=== PATIENT | female | born 1985 | race African-American/Black ===

== ENCOUNTER 2019-07-08 07:08 | Observation (INO) | payer SELFPAY ==
[2019-07-08] MEDS ORDERED: Misoprostol 25 MCG (1/4 of 100 MCG) Tab VAG ONE (07:23)
[2019-07-08] MEDS ORDERED: Sodium Chloride 0.9% 10 ML Syringe FLUSH PRN (07:23)
--- NOTE | 2019-07-08 08:33 | PCM.LDHP ---
L&D History of Present Illness - General Date of Service: 07/08/19 Admit Problem/Dx: Patient Status Order with Admit Dx/Problem 07/08/19 07:23 Patient Status [ADT] Routine Admission Diagnosis/Problem Admission Diagnosis/Problem Missed with demise before 20 completed weeks of gestation Source of Information: Patient History Limitations: Reports: No Limitations - History of Present Illness Introduction:: Lily Cartagena is a 34 year old female with missed at approximately 15 weeks 2 days on 07/06/2019. She was being seen for her initial OB appointment at time of diagnosis. She had not been feeling movement prior to diagnosis of missed . She had been seen previously with an ultrasound where she was measuring 14 WGA about 6 weeks prior to her appointment with Dr. Rodgers. She denies any cramping or contractions. Denies any fevers or chills. Present Illness Comments:: Lily Cartagena is a 34 year old female with missed at 15 weeks 2 days by recent ultrasound. Here for medical management of missed . This has been complicated by: * Missed at 15 WGA - patient previously diagnosed with missed at 15 weeks 2 days ultrasound done on 07/06/2019. Patient desired induction today due to other children being at home and lack of childcare. She does have someone available to watch her children today. Discussed with patient that she could consider testing to find causes the demise but she declined. * ancestry OB ultrasound done on 07/06/2019 Findings: Single intrauterine identified. No cardiac activity identified. Findings consistent with demise. Estimated gestational age at this point would have been 15 weeks 2 days. Cervical os is closed and measures 3.7 cm in length. Amniotic fluid was normal. 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 Social & Family History - Tobacco Use Smoking Status *Q: Never Smoker - Tobacco Core Measures Tobacco Use/Smoking Within Last 30 Days: No Smokeless Tobacco Use in Last 30 Days: No - Alcohol Use Alcohol Use History: No - Recreational Drug Use Recreational Drug Use: No Drug Use in Last 12 Months: No - Living Situation & Occupation Living situation: Reports: Single Occupation: Employed H&P Review of Systems - Review of Systems: Review Of Systems: See Below General: Denies: Fever, Chills, Malaise, Weakness, Fatigue HEENT: Denies: Rhinitis, Post Nasal Drip, Sinus Congestion, Sore Throat, Visual Changes Pulmonary: Denies: Shortness of Breath, Wheezing, Pleuritic Chest Pain, Cough Cardiovascular: Denies: Chest Pain, Palpitations, Dyspnea on Exertion, Orthopnea Gastrointestinal: Denies: Abdominal Pain, Constipation, Diarrhea, Nausea, Vomiting Genitourinary: Denies: Dysuria, Frequency, Burning, Pain, Urgency Musculoskeletal: Denies: Back Pain Skin: Denies: Rash, Lesions Psychiatric: Denies: Depression, Anxiety Neurological: Denies: Headache L&D Exam - Exam Exam: See Below - OB Specific Contraction Intensity: Not present Movement: Not Appreciated Heart Tones: Not [place] Heart Tones per Min: 0 (Bedside ultrasound performed without cardiac activity noted and no color Doppler flow noted) Presentation: Transverse - Doyle Score Doyle Score Cervix Position: Anterior Doyle Score Consistency: Medium Doyle Score Effacement: 31-50% (40%) Doyle Score Dilation: Closed (0.5 cm) Doyle Score Infant's Station: -3 Doyle Score Total: 4 - Exam General: Alert, Oriented HEENT: Conjunctiva Clear, EOMI Neck: Supple, Trachea Midline Lungs: Clear to Auscultation, Normal Respiratory Effort Cardiovascular: Regular Rate, Regular Rhythm GI/Abdominal Exam: Soft, Non-Tender, No Distention, Other (Gravid). No: Guarding, Rigid, Rebound Genitourinary: Normal external exam Extremities: Normal Inspection, No Pedal Edema Skin: Warm, Dry, Intact Psychiatric: Alert, Normal Affect, Normal Mood - Patient Data Lab Results Last 24 hrs: Laboratory Results - last 24 hr 07/08/19 Range/Units 07:55 WBC 7.28 (3.98-10.04) K/mm3 RBC 3.77 L (3.98-5.22) M/mm3 Hgb 11.2 (11.2-15.7) gm/dl Hct 33.5 L (34.1-44.9) % MCV 88.9 (79.4-94.8) fl MCH 29.7 (25.6-32.2) pg MCHC 33.4 (32.2-35.5) g/dl RDW Std Deviation 42.6 (36.4-46.3) fL Plt Count 304 (182-369) K/mm3 MPV 10.4 (9.4-12.3) fl Neut % (Auto) 67.1 (34.0-71.1) % Lymph % (Auto) 22.7 (19.3-51.7) % [place] % (Auto) 8.5 (4.7-12.5) % Eos % (Auto) 1.0 (0.7-5.8) Baso % (Auto) 0.3 (0.1-1.2) % Neut # (Auto) 4.89 (1.56-6.13) K/mm3 Lymph # (Auto) 1.65 (1.18-3.74) K/mm3 [place] # (Auto) 0.62 H (0.24-0.36) K/mm3 Eos # (Auto) 0.07 (0.04-0.36) K/mm3 Baso # (Auto) 0.02 (0.01-0.08) K/mm3 Result Diagrams: 07/08/19 07:55 - Problem List (1) 15 weeks gestation of SNOMED Code(s): 9184809 ICD Code: Z3A.15 - 15 WEEKS GESTATION OF Status: Acute Current Visit: Yes (2) Missed with demise before 20 completed weeks of gestation SNOMED Code(s): 42961728 ICD Code: O02.1 - MISSED Status: Acute Current Visit: Yes (3) ancestry requiring population-specific genetic screening SNOMED Code(s): 21715668, 557326559, 547943139 ICD Code: Z13.79 - ENCNTR FOR OTH SCREENING FOR GENETIC AND CHROMSOML ANOMALIES Status: Acute Current Visit: Yes Problem List Initiated/Reviewed/Updated: Yes Orders Last 24hrs: Active Orders 24 hr Category Date Time Status Patient Status [ADT] Routine ADT 07/08/19 07:23 Active Peripheral IV Care [RC] . DIRECTED Care 07/08/19 07:25 Active Up ad Griselda [RC] ASDIRECTED Care 07/08/19 07:23 Active Uterine Contraction Monitor [RC] PER UNIT ROUTINE Care 07/08/19 07:23 Active Vaginal Exam [RC] PRN Care 07/08/19 07:23 Active Vital Signs [RC] PER UNIT ROUTINE Care 07/08/19 07:23 Active RPR (SYPHILIS SERO) W/ RFLX [REF] Routine Lab 07/08/19 07:55 Received TYPE AND SCREEN [BBK] Stat Lab 07/08/19 07:55 Received Sodium Chloride 0.9% [Saline Flush] Med 07/08/19 07:23 Ordered 10 ml FLUSH ASDIRECTED PRN miSOPROStol [Cytotec] Med 07/08/19 10:30 Once 400 mcg VAG Q3HR ONE miSOPROStol [Cytotec] Med 07/08/19 07:23 Pending 800 mcg VAG ONETIME ONE Peripheral IV Insertion Adult [OM.PC] Routine Oth 07/08/19 07:23 Ordered Resuscitation Status Routine Resus Stat 07/08/19 07:23 Ordered Medication Orders Misoprostol (Cytotec) 800 mcg VAG ONETIME ONE Stop: 07/08/19 07:24 Misoprostol (Cytotec) 400 mcg VAG Q3HR ONE Stop: 07/08/19 10:31 Sodium Chloride (Saline Flush) 10 ml FLUSH ASDIRECTED PRN PRN Reason: Keep Vein Open Assessment/Plan Comment:: Refer to observation for medical management of missed at 15 weeks 2 days Start induction of labor with Cytotec 800 mcg vaginally now and repeat with Cytotec 400 mcg vaginally every [address] IV and initiate Lactated Ringer's at 125 ml/hr if not tolerating regular diet May have regular diet Activity as tolerated May have epidural or other pain control as desired Discussed with patient that we can perform laboratory testing to evaluate for the potential cause of the demise but patient declined any additional testing other than evaluation of infant. Type and screen, CBC and RPR test ordered with admission Anticipate vaginal delivery unless otherwise indicated Michael Bird M.D. 8:45 AM 07/08/2019
[2019-07-08] MEDS ORDERED: Misoprostol 200 MCG Tab VAG ONE (09:00)
[2019-07-08] MEDS ORDERED: Misoprostol 200 MCG Tab VAG SCH (10:30)
[2019-07-08] MEDS: Misoprostol 200 MCG Tab VAG SCH ×2 (11:29→14:50)
[2019-07-08] MEDS ORDERED: Ondansetron 4 MG/2 ML SDV IVPUSH PRN (11:55)
[2019-07-08] MEDS ORDERED: ePHEDrine 50 MG/ML SDV IVPUSH PRN (11:55)
[2019-07-08] MEDS ORDERED: fentaNYL/Bupivacaine/NS 2 MCG-0.125% 250 ML EPIDUR PRN (11:55)
[2019-07-08] MEDS ORDERED: fentaNYL 100 MCG/2 ML SDV EPIDUR PRN (11:55)
--- NOTE | 2019-07-08 11:57 | PCM.PREANE ---
Preanesthetic Assessment - Anesthesia/Transfusion/Family Hx Anesthesia History: No Prior Anesthesia Transfusion History: No Prior Transfusion(s) Intubation History: Unknown - Physical Assessment NPO Status Date: 07/08/19 Vital Signs: Last Vital Signs Temp 36.8 C 07/08/19 07:23 Pulse Resp 14 07/08/19 07:23 BP 128/78 07/08/19 07:23 Pulse Ox 100 07/08/19 07:23 Height: 1.7 m Weight: 69.626 kg ASA Class: 2 Mental Status: Alert & Oriented x3 - Lab Values: Laboratory Last Values WBC 7.28 K/mm3 (3.98-10.04) 07/08/19 07:55 RBC 3.77 M/mm3 (3.98-5.22) L 07/08/19 07:55 Hgb 11.2 gm/dl (11.2-15.7) 07/08/19 07:55 Hct 33.5 % (34.1-44.9) L 07/08/19 07:55 MCV 88.9 fl (79.4-94.8) 07/08/19 07:55 MCH 29.7 pg (25.6-32.2) 07/08/19 07:55 MCHC 33.4 g/dl (32.2-35.5) 07/08/19 07:55 RDW Std Deviation 42.6 fL (36.4-46.3) 07/08/19 07:55 Plt Count 304 K/mm3 (182-369) 07/08/19 07:55 MPV 10.4 fl (9.4-12.3) 07/08/19 07:55 Neut % (Auto) 67.1 % (34.0-71.1) 07/08/19 07:55 Lymph % (Auto) 22.7 % (19.3-51.7) 07/08/19 07:55 Ross % (Auto) 8.5 % (4.7-12.5) 07/08/19 07:55 Eos % (Auto) 1.0 (0.7-5.8) 07/08/19 07:55 Baso % (Auto) 0.3 % (0.1-1.2) 07/08/19 07:55 Neut # (Auto) 4.89 K/mm3 (1.56-6.13) 07/08/19 07:55 Lymph # (Auto) 1.65 K/mm3 (1.18-3.74) 07/08/19 07:55 Ross # (Auto) 0.62 K/mm3 (0.24-0.36) H 07/08/19 07:55 Eos # (Auto) 0.07 K/mm3 (0.04-0.36) 07/08/19 07:55 Baso # (Auto) 0.02 K/mm3 (0.01-0.08) 07/08/19 07:55 Blood Type O POSITIVE 07/08/19 07:55 Gel Antibody Screen Negative 07/08/19 07:55 Above labs reviewed and noted and within acceptable ranges to proceed with epidural if desired. 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 Smoking Status *Q: Never Smoker Second Hand Smoke Exposure: No Recreational Drug Use History: No - HOME MEDS Home Medications: Home Meds Mv-Mn/Iron/FA/Herbal/Digestive [ One Tablet] 1 tab PO DAILY 07/08/19 [ History] - CURRENT (IN HOUSE) MEDS Current Meds: Current Medications Ephedrine Sulfate (Ephedrine Sulfate) 5 mg IVPUSH ASDIRECTED PRN PRN Reason: Hypotension Fentanyl (Sublimaze) 100 mcg EPIDUR Q3H PRN PRN Reason: Pain Fentanyl/Bupivacaine HCl (Fentanyl/Bupivacaine/Ns 2 Mcg-0.125% 250 Ml) ml EPIDUR CONTINUOUS PRN PRN Reason: Pain Phenylephrine HCl 1 mg/ Sodium (Chloride) 10.1 mls @ 1 mls/sec IV TITRATE JAYMIE; Protocol Misoprostol (Cytotec) 400 mcg VAG Q3H JAYMIE Stop: 07/08/19 20:31 Last Admin: 07/08/19 11:29 Dose: 400 mcg Ondansetron HCl (Zofran) 4 mg IVPUSH ONETIME PRN PRN Reason: Nausea/Vomiting Sodium Chloride (Saline Flush) 10 ml FLUSH ASDIRECTED PRN PRN Reason: Keep Vein Open Discontinued Medications Misoprostol (Cytotec) 400 mcg VAG Q3H JAYMIE Stop: 07/08/19 19:31 Misoprostol (Cytotec) 800 mcg VAG ONETIME ONE Stop: 07/08/19 09:01 Last Admin: 07/08/19 08:20 Dose: 800 mcg
[2019-07-08] MEDS ORDERED: Phenylephrine 1 MG in Sodium Chloride 0.9% 10 ML IV SCH (12:00)
[2019-07-08] MEDS ORDERED: Misoprostol 25 MCG (1/4 of 100 MCG) Tab PO ONE (14:25)
[2019-07-08] MEDS ORDERED: Misoprostol 200 MCG Tab PO ONE (14:25)
--- NOTE | 2019-07-08 14:38 | PCM.DEL ---
L & D Note - General Info Date of Service: 07/08/19 - Delivery Note Cervical Ripening Method: Misoprostil Delivery Outcome: Miscarriage (at 15 WGA) Delivery Method: Spontaneous Vaginal Delivery-Single Presentation: Breech Nuchal Cord: None Anesthesia Type: None Amniotic Fluid Description: Bloody Episiotomy Type: None Laceration: None Placenta: Intact, Manual Removal (with ring forceps) Estimated Blood Loss: 400 Provider: Michael Bird Delivery Comments (Free Text/Narrative):: Stage I: Lily Cartagena was admitted for medical management of second trimester missed at approximately 15 weeks gestational age. Patient had been previously seen by Dr. Rodgers and diagnosed with a missed on 07/06/2019 when the was measuring 15 weeks 2 days. On admission her cervix was dilated to 0.5 cm. She was given Cytotec 800 mcg vaginally 4 an initial loading dose. She received a second dose of vaginal Cytotec 400 mcg 3 hours later. At around 2 PM she informed the nurse that she was feeling significant pressure in the vagina and pelvis. The nurse performed an exam and had significant amount of vaginal bleeding that was noted at that time. I was contacted for evaluation of the patient. On evaluation of the patient there is noted to be the majority of the gestational sac in the vagina without being able to feel the fetus present. Artificial rupture of membranes with return of bloody amniotic fluid was performed with a ring forceps. Stage II: On 07/08/2019 she had a vaginal delivery of a stillborn male fetus at 14:09. Weight was not obtained. Fetus was delivered in in breech position. The cord was cut by myself. Fetus was transferred to receptacle for the fetus. Stage III: On further evaluation the placenta was able to be felt at the cervical introitus and partially into the vagina. She had a manual removal delivery of an intact placenta with ring forceps in [place] presentation. She was given an additional dose of Cytotec 400 mcg buccally and fundal massage. She had no lacerations. Ultrasound was performed to evaluate the uterine lining and it was noted to be within normal limits at 1.5 cm. EBL of 400 mL. plan at this time is to monitor patient for several additional hours to ensure that she does not have ongoing heavy vaginal bleeding and will evaluate for possible discharge at that time. Michael Bird MD 2:47 PM 07/08/2019 - General Info Date of Service: 07/08/19 - Patient Data Vitals - Most Recent: Last Vital Signs Temp 36.8 C 07/08/19 07:23 Pulse Resp 14 07/08/19 07:23 BP 128/78 07/08/19 07:23 Pulse Ox 100 07/08/19 07:23 Weight - Most Recent: 69.626 kg Lab Results Last 24 Hours: Laboratory Results - last 24 hr 07/08/19 07/08/19 Range/Units 07:55 07:55 WBC 7.28 (3.98-10.04) K/mm3 RBC 3.77 L (3.98-5.22) M/mm3 Hgb 11.2 (11.2-15.7) gm/dl Hct 33.5 L (34.1-44.9) % MCV 88.9 (79.4-94.8) fl MCH 29.7 (25.6-32.2) pg MCHC 33.4 (32.2-35.5) g/dl RDW Std Deviation 42.6 (36.4-46.3) fL Plt Count 304 (182-369) K/mm3 MPV 10.4 (9.4-12.3) fl Neut % (Auto) 67.1 (34.0-71.1) % Lymph % (Auto) 22.7 (19.3-51.7) % [place] % (Auto) 8.5 (4.7-12.5) % Eos % (Auto) 1.0 (0.7-5.8) Baso % (Auto) 0.3 (0.1-1.2) % Neut # (Auto) 4.89 (1.56-6.13) K/mm3 Lymph # (Auto) 1.65 (1.18-3.74) K/mm3 [place] # (Auto) 0.62 H (0.24-0.36) K/mm3 Eos # (Auto) 0.07 (0.04-0.36) K/mm3 Baso # (Auto) 0.02 (0.01-0.08) K/mm3 Blood Type O POSITIVE Gel Antibody Screen Negative Med Orders - Current: Current Medications Ephedrine Sulfate (Ephedrine Sulfate) 5 mg IVPUSH ASDIRECTED PRN PRN Reason: Hypotension Fentanyl (Sublimaze) 100 mcg EPIDUR Q3H PRN PRN Reason: Pain Fentanyl/Bupivacaine HCl (Fentanyl/Bupivacaine/Ns 2 Mcg-0.125% 250 Ml) 0 ml EPIDUR CONTINUOUS PRN PRN Reason: Pain Phenylephrine HCl 1 mg/ Sodium (Chloride) 10.1 mls @ 1 mls/sec IV TITRATE JAYMIE; Protocol Misoprostol (Cytotec) 400 mcg VAG Q3H JAYMIE Stop: 07/08/19 20:31 Last Admin: 07/08/19 11:29 Dose: 400 mcg Ondansetron HCl (Zofran) 4 mg IVPUSH ONETIME PRN PRN Reason: Nausea/Vomiting Sodium Chloride (Saline Flush) 10 ml FLUSH ASDIRECTED PRN PRN Reason: Keep Vein Open Discontinued Medications Misoprostol (Cytotec) 400 mcg VAG Q3H JAYMIE Stop: 07/08/19 19:31 Misoprostol (Cytotec) 800 mcg VAG ONETIME ONE Stop: 07/08/19 09:01 Last Admin: 07/08/19 08:20 Dose: 800 mcg - Problem List & Annotations (1) 15 weeks gestation of SNOMED Code(s): 9938006 Code(s): Z3A.15 - 15 WEEKS GESTATION OF Status: Acute Current Visit: Yes (2) Missed with demise before 20 completed weeks of gestation SNOMED Code(s): 21500828 Code(s): O02.1 - MISSED Status: Acute Current Visit: Yes (3) ancestry requiring population-specific genetic screening SNOMED Code(s): 74349109, 285237442, 802077292 Code(s): Z13.79 - ENCNTR FOR [facility] SCREENING FOR GENETIC AND CHROMSOML ANOMALIES Status: Acute Current Visit: Yes (4) Medical SNOMED Code(s): 80030815 Code(s): Z33.2 - ENCOUNTER FOR ELECTIVE TERMINATION OF Status: Acute Current Visit: Yes - Problem List Review Problem List Initiated/Reviewed/Updated: Yes - My Orders Last 24 Hours: My Active Orders 07/08/19 07:23 Patient Status [ADT] Routine Up ad Griselda [RC] ASDIRECTED Uterine Contraction Monitor [RC] PER UNIT ROUTINE Vaginal Exam [RC] PRN Vital Signs [RC] PER UNIT ROUTINE Sodium Chloride 0.9% [Saline Flush] 10 ml FLUSH ASDIRECTED PRN Peripheral IV Insertion Adult [OM.PC] Routine Resuscitation Status Routine 07/08/19 07:25 Peripheral IV Care [RC] . DIRECTED 07/08/19 07:55 RPR (SYPHILIS SERO) W/ RFLX [REF] Routine 07/08/19 09:35 PATIENT RETYPE [BBK] Routine 07/08/19 11:30 miSOPROStol [Cytotec] 400 mcg VAG Q3H 07/08/19 Dinner Regular Diet [DIET] - Plan Plan:: Continue observation after medical procedure with vaginal delivery after treatment with Cytotec Patient given an additional dose of Cytotec 400 mcg buccally for uterine tone Continue IV and initiate Lactated Ringer's at 125 ml/hr if not tolerating regular diet or having significant vaginal bleeding May have regular diet Activity as tolerated Continue to monitor vaginal bleeding at this time and we will reassess for possible discharge later this afternoon Patient seems to be doing well at this time with appropriate affect after delivery of stillborn fetus. Michael Bird M.D. 2:51 PM 07/08/2019
[2019-07-08] MEDS ORDERED: Loperamide 2 MG Cap PO ONE (15:45)
--- NOTE | 2019-07-08 18:12 | PCM.DCSUM1 ---
Discharge Summary - Hospital Course Free Text/Narrative:: Stage I: Lily Cartagena was admitted for medical management of second trimester missed at approximately 15 weeks gestational age. Patient had been previously seen by Dr. Rodgers and diagnosed with a missed on 07/06/2019 when the was measuring 15 weeks 2 days. On admission her cervix was dilated to 0.5 cm. She was given Cytotec 800 mcg vaginally 4 an initial loading dose. She received a second dose of vaginal Cytotec 400 mcg 3 hours later. At around 2 PM she informed the nurse that she was feeling significant pressure in the vagina and pelvis. The nurse performed an exam and had significant amount of vaginal bleeding that was noted at that time. I was contacted for evaluation of the patient. On evaluation of the patient there is noted to be the majority of the gestational sac in the vagina without being able to feel the fetus present. Artificial rupture of membranes with return of bloody amniotic fluid was performed with a ring forceps. Stage II: On 07/08/2019 she had a vaginal delivery of a stillborn male fetus at 14:09. Weight was not obtained. Fetus was delivered in in breech position. The cord was cut by myself. Fetus was transferred to receptacle for the fetus. Stage III: On further evaluation the placenta was able to be felt at the cervical introitus and partially into the vagina. She had a manual removal delivery of an intact placenta with ring forceps in [place] presentation. She was given an additional dose of Cytotec 400 mcg buccally and fundal massage. She had no lacerations. Ultrasound was performed to evaluate the uterine lining and it was noted to be within normal limits at 1.5 cm. EBL of 400 mL. plan at this time is to monitor patient for several additional hours to ensure that she does not have ongoing heavy vaginal bleeding and will evaluate for possible discharge at that time. HPI Initial Comments: Stage I: Lily Cartagena was admitted for medical management of second trimester missed at approximately 15 weeks gestational age. Patient had been previously seen by Dr. Rodgers and diagnosed with a missed on 07/06/2019 when the was measuring 15 weeks 2 days. On admission her cervix was dilated to 0.5 cm. She was given Cytotec 800 mcg vaginally 4 an initial loading dose. She received a second dose of vaginal Cytotec 400 mcg 3 hours later. At around 2 PM she informed the nurse that she was feeling significant pressure in the vagina and pelvis. The nurse performed an exam and had significant amount of vaginal bleeding that was noted at that time. I was contacted for evaluation of the patient. On evaluation of the patient there is noted to be the majority of the gestational sac in the vagina without being able to feel the fetus present. Artificial rupture of membranes with return of bloody amniotic fluid was performed with a ring forceps. Stage II: On 07/08/2019 she had a vaginal delivery of a stillborn male fetus at 14:09. Weight was not obtained. Fetus was delivered in in breech position. The cord was cut by myself. Fetus was transferred to receptacle for the fetus. Stage III: On further evaluation the placenta was able to be felt at the cervical introitus and partially into the vagina. She had a manual removal delivery of an intact placenta with ring forceps in [place] presentation. She was given an additional dose of Cytotec 400 mcg buccally and fundal massage. She had no lacerations. Ultrasound was performed to evaluate the uterine lining and it was noted to be within normal limits at 1.5 cm. EBL of 400 mL. plan at this time is to monitor patient for several additional hours to ensure that she does not have ongoing heavy vaginal bleeding and will evaluate for possible discharge at that time. Brief History: Stage I: Lily Cartagena was admitted for medical management of second trimester missed at approximately 15 weeks gestational age. Patient had been previously seen by Dr. Rodgers and diagnosed with a missed on 07/06/2019 when the infant was measuring 15 weeks 2 days. On admission her cervix was dilated to 0.5 cm. She was given Cytotec 800 mcg vaginally 4 an initial loading dose. She received a second dose of vaginal Cytotec 400 mcg 3 hours later. At around 2 PM she informed the nurse that she was feeling significant pressure in the vagina and pelvis. The nurse performed an exam and had significant amount of vaginal bleeding that was noted at that time. I was contacted for evaluation of the patient. On evaluation of the patient there is noted to be the majority of the gestational sac in the vagina without being able to feel the fetus present. Artificial rupture of membranes with return of bloody amniotic fluid was performed with a ring forceps. Stage II: On 07/08/2019 she had a vaginal delivery of a stillborn male fetus at 14:09. Weight was not obtained. Fetus was delivered in in breech position. The cord was cut by myself. Fetus was transferred to receptacle for the fetus. Stage III: On further evaluation the placenta was able to be felt at the cervical introitus and partially into the vagina. She had a manual removal delivery of an intact placenta with ring forceps in [place] presentation. She was given an additional dose of Cytotec 400 mcg buccally and fundal massage. She had no lacerations. Ultrasound was performed to evaluate the uterine lining and it was noted to be within normal limits at 1.5 cm. EBL of 400 mL. plan at this time is to monitor patient for several additional hours to ensure that she does not have ongoing heavy vaginal bleeding and will evaluate for possible discharge at that time. Diagnosis: Stroke: No - Discharge Data Discharge Date: 07/08/19 Discharge Disposition: Home, Self-Care 01 Condition: Good - Referral to Home Health Primary Care Physician: Dalila Rodgers MD - Discharge Diagnosis/Problem(s) (1) 15 weeks gestation of SNOMED Code(s): 4998677 ICD Code: Z3A.15 - 15 WEEKS GESTATION OF Status: Acute Current Visit: Yes (2) Missed with demise before 20 completed weeks of gestation SNOMED Code(s): 49920534 ICD Code: O02.1 - MISSED Status: Acute Current Visit: Yes (3) ancestry requiring population-specific genetic screening SNOMED Code(s): 28367871, 767262529, 325274803 ICD Code: Z13.79 - ENCNTR FOR OT SCREENING FOR GENETIC AND CHROMSOML ANOMALIES Status: Acute Current Visit: Yes (4) Medical SNOMED Code(s): 99862934 ICD Code: Z33.2 - ENCOUNTER FOR ELECTIVE TERMINATION OF Status: Acute Current Visit: Yes - Patient Summary/Data Complications: None Consults: None Hospital Course: Lily Cartagena was observed for medical induction for missed at 15 weeks gestational age. On admission her cervix was dilated to 0.5 cm. She was given Cytotec 800 mcg vaginally for an initial loading dose. She received a second dose of vaginal Cytotec 400 mcg 3 hours later. At around 2 PM she informed the nurse that she was feeling significant pressure in the vagina and pelvis. The nurse performed an exam and had significant amount of vaginal bleeding that was noted at that time. On evaluation of the patient there is noted to be the majority of the gestational sac in the vagina without being able to feel the fetus present. Artificial rupture of membranes with return of bloody amniotic fluid was performed with a ring forceps. On 07/08/2019 she had a vaginal delivery of a stillborn male fetus at 14:09. Weight was not obtained. Fetus was delivered in in breech position. Evaluation of the fetus was overall normal without any significant abnormalities of the extremities or abdomen. The head was noted to have bilateral enlargements in the posterior portion of the head. There was also a large mass in the left upper thorax near the axilla. Facial features were grossly normal. Patient declined further workup on the fetus or for the cause of the missed . She was given Cytotec 400 mcg buccally after delivery of the fetus and placenta for uterine tone. Her course after the medical was uneventful. Her pain was minimal and well controlled without medications. She had minimal lochia and was not passing any blood clots. She was ambulating, tolerating a regular diet and voiding normally. She was afebrile and her hematocrit was 33.5 on admission. She was having some mild diarrhea that was treated with Imodium. She desired to be discharged home in the afternoon of procedure day #0. Her blood type is O+. Patient to follow-up with Dr. Rodgers in 2-3 weeks or earlier as needed. - Patient Instructions Diet: Regular Diet as Tolerated Activity: Apply Ice, As Tolerated Activity, Other: Nothing in the vagina for 3 weeks Driving: May Drive Today Showering/Bathing: May Shower Notify Provider of: Fever, Increased Pain, Swelling and Redness, Drainage, Nausea and/or Vomiting Other/Special Instructions: Please contact your physician's office if you have heavy vaginal bleeding enough to soak a pad in less than an hour. - Discharge Plan *PRESCRIPTION DRUG MONITORING PROGRAM REVIEWED*: Not Applicable *COPY OF PRESCRIPTION DRUG MONITORING REPORT IN PATIENT SHANNA: Not Applicable Prescriptions/Med Rec: Acetaminophen [Tylenol] 650 mg PO Q6H PRN #60 tablet PRN Reason: Pain Ibuprofen 600 mg PO Q6H PRN #60 tablet PRN Reason: Pain Home Medications: Home Meds Acetaminophen [Tylenol] 650 mg PO Q6H PRN #60 tablet 07/08/19 [Rx] Ibuprofen 600 mg PO Q6H PRN #60 tablet 07/08/19 [Rx] Mv-Mn/Iron/FA/Herbal/Digestive [ One Tablet] 1 tab PO DAILY 07/08/19 [ History] Patient Handouts: Prostaglandin-Induced , Care After Referrals: Dalila Rodgers MD [Primary Care Provider] - (Follow up in 2-[address] Rodgers or earlier as needed.) - Discharge Summary/Plan Comment DC Time >30 min.: No - Patient Data Vitals - Most Recent: Last Vital Signs Temp 36.8 C 07/08/19 07:23 Pulse Resp 14 07/08/19 07:23 BP 128/78 07/08/19 07:23 Pulse Ox 100 07/08/19 07:23 Weight - Most Recent: 69.626 kg I&O - Last 24 hours: Intake & Output 07/08/19 07/08/19 07/08/19 06:59 14:59 22:59 Intake Total 120 Balance 120 Lab Results - Last 24 hrs: Laboratory Results - last 24 hr 07/08/19 07/08/19 Range/Units 07:55 07:55 WBC 7.28 (3.98-10.04) K/mm3 RBC 3.77 L (3.98-5.22) M/mm3 Hgb 11.2 (11.2-15.7) gm/dl Hct 33.5 L (34.1-44.9) % MCV 88.9 (79.4-94.8) fl MCH 29.7 (25.6-32.2) pg MCHC 33.4 (32.2-35.5) g/dl RDW Std Deviation 42.6 (36.4-46.3) fL Plt Count 304 (182-369) K/mm3 MPV 10.4 (9.4-12.3) fl Neut % (Auto) 67.1 (34.0-71.1) % Lymph % (Auto) 22.7 (19.3-51.7) % [place] % (Auto) 8.5 (4.7-12.5) % Eos % (Auto) 1.0 (0.7-5.8) Baso % (Auto) 0.3 (0.1-1.2) % Neut # (Auto) 4.89 (1.56-6.13) K/mm3 Lymph # (Auto) 1.65 (1.18-3.74) K/mm3 [place] # (Auto) 0.62 H (0.24-0.36) K/mm3 Eos # (Auto) 0.07 (0.04-0.36) K/mm3 Baso # (Auto) 0.02 (0.01-0.08) K/mm3 Blood Type O POSITIVE Gel Antibody Screen Negative Med Orders - Current: Current Medications Ephedrine Sulfate (Ephedrine Sulfate) 5 mg IVPUSH ASDIRECTED PRN PRN Reason: Hypotension Fentanyl (Sublimaze) 100 mcg EPIDUR Q3H PRN PRN Reason: Pain Fentanyl/Bupivacaine HCl (Fentanyl/Bupivacaine/Ns 2 Mcg-0.125% 250 Ml) 0 ml EPIDUR CONTINUOUS PRN PRN Reason: Pain Phenylephrine HCl 1 mg/ Sodium (Chloride) 10.1 mls @ 1 mls/sec IV TITRATE JAYMIE; Protocol Misoprostol (Cytotec) 400 mcg VAG Q3H JAYMIE Stop: 07/08/19 20:31 Last Admin: 07/08/19 14:50 Dose: Not Given Ondansetron HCl (Zofran) 4 mg IVPUSH ONETIME PRN PRN Reason: Nausea/Vomiting Sodium Chloride (Saline Flush) 10 ml FLUSH ASDIRECTED PRN PRN Reason: Keep Vein Open Discontinued Medications Loperamide HCl (Imodium) 2 mg PO ONETIME ONE Stop: 07/08/19 15:46 Last Admin: 07/08/19 16:03 Dose: 2 mg Misoprostol (Cytotec) 400 mcg VAG Q3H JAYMIE Stop: 07/08/19 19:31 Misoprostol (Cytotec) 800 mcg VAG ONETIME ONE Stop: 07/08/19 09:01 Last Admin: 07/08/19 08:20 Dose: 800 mcg Misoprostol (Cytotec) 400 mcg PO BID ONE Stop: 07/08/19 14:26 Misoprostol (Cytotec) 400 mcg PO ONETIME ONE Stop: 07/08/19 14:26 Last Admin: 07/08/19 14:25 Dose: 400 mcg
== END 2019-07-08 18:47 | disposition home or self-care (01) ==
LOC: JD.OB 07:08 → UNDOADMOB 07:08 → UNDODISOB 18:47
PROVIDERS: ADMIT Obstetrics & Gynecology; ATTEND Obstetrics & Gynecology
DX: O02.1 Missed abortion (principal); Z13.79 Encounter for other screening for genetic and chromosomal anomalies
CPT/HCPCS: 36415; 85025; 86592; 86850; 86900; 86901; A9270; 59409; G0378